=== PATIENT | male | born 1945 | race Caucasian/White ===

== ENCOUNTER 2022-09-02 06:06 | Day surgery (SDC) | payer MEDICARE, BC ==
[2022-08-31 16:05] VITALS: BMI 30.7
[2022-09-02] MEDS ORDERED: PROPOFOL 40 ML ONE (07:05)
[2022-09-02] MEDS ORDERED: Lidocaine 1% PF 5 ML VIAL ONE (07:05)
== END 2022-09-02 08:17 | disposition home or self-care (01) ==
LOC: CSHSDC 06:06
PROVIDERS: ATTEND Surgery
PROC: 0DDL8ZX Extraction of Transverse Colon, Via Natural or Artificial Opening Endoscopic, Diagnostic (ICD-10-PCS; principal; 2022-09-02)
PROC: 0DDE8ZX Extraction of Large Intestine, Via Natural or Artificial Opening Endoscopic, Diagnostic (ICD-10-PCS; 2022-09-02)
DX: Z12.11 Encounter for screening for malignant neoplasm of colon (principal); D12.3 Benign neoplasm of transverse colon; K57.30 Diverticulosis of large intestine without perforation or abscess without bleeding; I10 Essential (primary) hypertension; E11.9 Type 2 diabetes mellitus without complications; E78.5 Hyperlipidemia, unspecified; Z79.899 Other long term (current) drug therapy; Z85.038 Personal history of other malignant neoplasm of large intestine; Z90.49 Acquired absence of other specified parts of digestive tract; Z87.891 Personal history of nicotine dependence
CPT/HCPCS: 88305; J2704

== ENCOUNTER 2023-07-06 10:58 | Outpatient (CLI) | payer OTHER | END 2023-07-06 10:59 | disposition home or self-care (01) | LOC: CSHULT 10:58 → EDSTATUS 13:00 | PROVIDERS: ATTEND Chiropractor | DX: I13.10 Hypertensive heart and chronic kidney disease without heart failure, with stage 1 through stage 4 chronic kidney disease, or unspecified chronic kidney disease (principal); E11.40 Type 2 diabetes mellitus with diabetic neuropathy, unspecified; I70.0 Atherosclerosis of aorta | CPT/HCPCS: 93306 ==